=== PATIENT | female | born 1990 | race Caucasian/White ===

== ENCOUNTER 2021-03-24 19:13 | Emergency (ER) | payer OTHER, SELFPAY ==
[2021-03-24] MEDS ORDERED: HYDROcodone/Acetaminophen 5/325 mg Tablet ONE (20:49)
== END 2021-03-24 22:23 | disposition home or self-care (01) ==
LOC: ERS 19:13
DX: S82.851A Displaced trimalleolar fracture of right lower leg, initial encounter for closed fracture (principal); W18.42XA Slipping, tripping and stumbling without falling due to stepping into hole or opening, initial encounter; Y93.68 Activity, volleyball (beach) (court)
CPT/HCPCS: 27818

== ENCOUNTER 2021-03-26 14:02 | Outpatient (CLI) | payer SELFPAY ==
[2021-03-26 16:36] LABS: BHCG - Serum Negative (NEGATIVE); Pregs Control Background? CLEAR/WHITE (CLR/WHITE); Pregs Control Bar Appear? YES (CONTROL BAR)
[2021-03-27 04:50] LABS: SARS-CoV-2 PCR by NAA Not Detected (NotDetected)
== END 2021-03-26 14:03 | disposition home or self-care (01) ==
LOC: LABBT 14:02
PROVIDERS: ATTEND Orthopaedic Surgery
DX: Z01.812 Encounter for preprocedural laboratory examination (principal); Z20.822 Contact with and (suspected) exposure to COVID-19
CPT/HCPCS: 84703; 87635; U0003; U0005

== ENCOUNTER 2021-03-29 08:33 | Day surgery (SDC) | payer SELFPAY ==
[2021-03-28 14:31] VITALS: BMI 38.3
[2021-03-29] MEDS ORDERED: Midazolam HCl 2 mg/2 ml Vial ONE (09:51)
[2021-03-29] MEDS ORDERED: Fentanyl 100 MCG/2 ML VIAL ONE ×3 (09:51→11:58)
[2021-03-29] MEDS ORDERED: Dexmedetomidine 200 MCG/2 ML VIAL ONE (10:25)
[2021-03-29] MEDS ORDERED: ePHEDrine Sulfate 50 MG/10 ML VIAL ONE (10:49)
[2021-03-29] MEDS ORDERED: Ondansetron PF 4 MG/2 ML Vial ONE (10:49)
[2021-03-29] MEDS ORDERED: Dexamethasone 20 MG/5 ML VIAL ONE (10:49)
[2021-03-29] MEDS ORDERED: Lidocaine 1% PF 5 ML VIAL ONE (10:49)
[2021-03-29] MEDS ORDERED: PROPOFOL 200 MG/20 ML VIAL ONE (10:49)
[2021-03-29] MEDS ORDERED: Bupivacaine HCl 0.5%/Epinephrine 1:200,000/PF 30 ml Vial ONE (10:49)
[2021-03-29] MEDS ORDERED: HYDROcodone/Acetaminophen 5/325 mg Tablet ONE (12:50)
== END 2021-03-29 14:38 | disposition home or self-care (01) ==
LOC: SDC 08:33
PROVIDERS: ATTEND Orthopaedic Surgery
PROC: 0QSG04Z Reposition Right Tibia with Internal Fixation Device, Open Approach (ICD-10-PCS; principal; 2021-03-29)
PROC: 0QSJ04Z Reposition Right Fibula with Internal Fixation Device, Open Approach (ICD-10-PCS; principal; 2021-03-29)
DX: S82.851A Displaced trimalleolar fracture of right lower leg, initial encounter for closed fracture (principal); S93.431A Sprain of tibiofibular ligament of right ankle, initial encounter; Z79.899 Other long term (current) drug therapy; W18.30XA Fall on same level, unspecified, initial encounter; Y93.68 Activity, volleyball (beach) (court)
CPT/HCPCS: 76000; C1713; J0690; J1100; J2250; J2405; J2704; J3010

== ENCOUNTER 2021-07-24 13:08 | Outpatient (CLI) | payer SELFPAY ==
[2021-07-24 15:41] LABS: BHCG - Serum Negative (NEGATIVE); Pregs Control Background? CLEAR/WHITE (CLR/WHITE); Pregs Control Bar Appear? YES (CONTROL BAR)
[2021-07-25 12:24] LABS: SARS-CoV-2 PCR by NAA Not Detected (NotDetected)
== END 2021-07-24 13:09 | disposition home or self-care (01) ==
LOC: LABBT 13:08
PROVIDERS: ATTEND Orthopaedic Surgery
DX: Z01.812 Encounter for preprocedural laboratory examination (principal); Z20.822 Contact with and (suspected) exposure to COVID-19
CPT/HCPCS: 84703; U0003; U0005

== ENCOUNTER 2021-07-29 10:45 | Day surgery (SDC) | payer OTHER ==
[2021-07-26 11:16] VITALS: BMI 54.1
[2021-07-29] MEDS ORDERED: Midazolam HCl 2 mg/2 ml Vial ONE (11:35)
[2021-07-29] MEDS ORDERED: Bupivacaine PF 0.5% 30 ML VIAL ONE (11:48)
[2021-07-29] MEDS ORDERED: Famotidine/PF 20 mg/2ml Vial ONE (12:05)
[2021-07-29] MEDS ORDERED: Fentanyl 100 MCG/2 ML VIAL ONE ×4 (12:15→14:16)
[2021-07-29] MEDS ORDERED: Ketorolac Tromethamine 30 MG/ML VIAL ONE (12:45)
[2021-07-29] MEDS ORDERED: Dexamethasone 20 MG/5 ML VIAL ONE (12:45)
[2021-07-29] MEDS ORDERED: PROPOFOL 200 MG/20 ML VIAL ONE (12:45)
[2021-07-29] MEDS ORDERED: Lidocaine 1% PF 5 ML VIAL ONE (12:45)
[2021-07-29] MEDS ORDERED: Ondansetron PF 4 MG/2 ML Vial ONE (12:45)
[2021-07-29] MEDS ORDERED: Promethazine HCl 25 MG/ML VIAL ONE (14:52)
== END 2021-07-29 15:35 | disposition home or self-care (01) ==
LOC: SDC 10:45
PROVIDERS: ATTEND Orthopaedic Surgery
PROC: 0SPF04Z Removal of Internal Fixation Device from Right Ankle Joint, Open Approach (ICD-10-PCS; principal; 2021-07-29)
DX: T84.624A Infection and inflammatory reaction due to internal fixation device of right fibula, initial encounter (principal); T84.622A Infection and inflammatory reaction due to internal fixation device of right tibia, initial encounter; T84.117A Breakdown (mechanical) of internal fixation device of bone of left lower leg, initial encounter; Z87.891 Personal history of nicotine dependence; Z79.899 Other long term (current) drug therapy
CPT/HCPCS: 76000; J0690; J1100; J1885; J2250; J2405; J2550; J2704; J3010; S0020; S0028

== ENCOUNTER 2024-02-04 06:54 | Emergency (ER) | payer SELFPAY ==
[2024-02-04 07:21] LABS: #Eosinphils 0.1 thou/uL (0.0-0.7); #Monocytes 0.4 thou/uL (0.11-0.59); #Neutrophils 9.6 thou/uL (1.40-6.50); %Basophils 0.1 % (0.0-1.0); %Eosinophils 0.8 % (0.0-10.0); %Lymphocytes 11.3 % (21.0-51.0); %Monocytes 3.5 % (0.0-10.0); Hematocrit 42.2 % (36.0-47.0); Hemoglobin 14.7 g/dL (12.0-16.0); Mean Corpuscular HGB CONC 34.8 g/dL (32.0-36.0); Mean Corpuscular Hemoglobin 31.9 pg (27.0-31.0); Mean Corpuscular Volume 91.5 fl (78.0-98.0); Mean Platelet Volume 9.5 fL (7.4-10.4); Platelet Count 394 10x3/uL (130-400); RBC Distribution Width 11.9 % (11.5-14.5); Red Blood Cell (RBC) Count 4.61 mill/uL (4.20-5.40); White Blood Cell (WBC) Count 11.4 10x3/uL (4.8-10.8)
[2024-02-04] MEDS ORDERED: diphenhydrAMINE 50 MG/ML VIAL ONE (07:26)
[2024-02-04] MEDS ORDERED: Metoclopramide HCl 10 MG (2 mL) VIAL ONE (07:26)
[2024-02-04 07:34] LABS: Bacteria/HPF None Seen HPF (None Seen); Bilirubin Negative (Negative); Blood, Urine Negative (Negative); CAUTI Indications for Culture Dysuria,urgency,freq; Clarity Clear (Clear); Glucose, Urine (Dipstick) Normal (Negative); Ketone, Urine Trace mg/dL (Negative); Leukocyte Negative Leu/uL (Negative); Nitrite Negative (Negative); Protein, Urine (Dipstick) 70 mg/dL (Neg-Trace); RBC/HPF 0-3 HPF (0-3); Specific Gravity, Urine 1.029 (1.002-1.036); Squamous Epithelial 0-3 HPF (0-3); Urobilinogen 3 mg/dL (Less than 2); WBC/HPF 0-3 HPF (0-3); pH, Urine 7.5 (5.0-9.0)
[2024-02-04 08:02] LABS: BHCG - Serum Negative (NEGATIVE); Pregs Control Background? CLEAR/WHITE (CLR/WHITE); Pregs Control Bar Appear? YES (CONTROL BAR)
[2024-02-04 08:04] LABS: Urine Culture Reflex No No
[2024-02-04 08:11] LABS: ALT (SGPT) 29 U/L (8-55); AST (SGOT) 18 U/L (5-34); Albumin 4.5 g/dL (3.5-5.0); Alkaline Phosphatase 54 U/L (40-110); Anion Gap 16 mmol/L (10-20); BUN (Urea Nitrogen) 19 mg/dL (7.0-18.7); Bilirubin, Total 0.9 mg/dL (0.2-1.2); Calc. Creatinine Clearance 0 mL/min (70-130); Calcium 9.3 mg/dL (7.8-10.44); Carbon Dioxide 24 mmol/L (22-29); Chloride 103 mmol/L (98-107); Estimated GFR 87; Glucose 131 mg/dL (70-105); Lipase 12 U/L (8-78); Potassium 4.7 mmol/L (3.5-5.1); Protein, Total 7.5 g/dL (6.0-8.3); Sodium 138 mmol/L (136-145)
== END 2024-02-04 09:03 | disposition home or self-care (01) ==
LOC: ERS 06:54
DX: R10.11 Right upper quadrant pain (principal); R10.12 Left upper quadrant pain; R11.2 Nausea with vomiting, unspecified
CPT/HCPCS: 36415; 76705; 80053; 81001; 83690; 84703; 85025; 96365; 96375; J1200; J2765